=== PATIENT | female | born 1950 | race African-American/Black ===

== ENCOUNTER 2025-02-02 12:40 | Emergency (ER) | payer OTHER ==
[~2025-02-02] VITALS: Ht 170.2 cm; Wt 60.0 kg
[2025-02-02 12:48] VITALS: O2SAT 100
[2025-02-02] MEDS: SODIUM CHLORIDE 0.9% 1,000 ML IV NR (14:06)
[2025-02-02] MEDS: METOCLOPRAMIDE HCL 10MG/2ML VIAL IV NR (14:12)
[2025-02-02 15:15] LABS: HEMATOCRIT. 40.4 % (36.0-48.0); HEMOGLOBIN. 13.0 g/dL (12.0-16.0); MEAN PLATELET VOLUME 7.9 fl (7.4-10.4); PLATELET 223 x1000/uL (130-400); RED BLOOD CELL COUNT 4.86 mill/uL (4.2-5.4); RED CELL DISTRIBUTION WIDTH 14.7 % (11.6-14.6)
[2025-02-02 15:25] LABS: CREATININE 0.8 mg/dL (0.6-1.0); TROPONIN I HIGH SENSITIVITY < 4 ng/L (3.0-34); UREA NITROGEN BLOOD 17 mg/dL (9-23)
[2025-02-02 15:27] LABS: ASPARTATE AMINOTRANSFERASE 18 IU/L (<34); BILIRUBIN DIRECT 0.3 mg/dL (<=3.0); BILIRUBIN TOTAL 1.3 mg/dL (0.1-1.0); PROTEIN TOTAL 6.4 g/dL (6.0-8.3)
[2025-02-02 15:40] LABS: INR 1.1
[2025-02-02 17:08] LABS: BAND% 2.0 % (1.0-6.0); LYMPHOCYTES % MANUAL 6.0 % (20.0-60.0); MONOCYTES % MANUAL 7.0 % (2.0-8.0); NEUTROPHILS % MANUAL 85.0 % (45.0-75.0)
[2025-02-02 17:09] LABS: PLATELET ESTIMATE NORMAL
[2025-02-02] MEDS: IOHEXOL-350 100 ML BOTTLE ONE (17:30)
[2025-02-02 18:29] VITALS: BP 128/62; PULSE 94; RESP 19; TEMP 36.9; O2SAT 100
== END 2025-02-02 18:30 | disposition home or self-care (01) ==
LOC: ER 12:40 → CMPBEDREQ 02-03 07:23
DX: R55 Syncope and collapse (principal)
CPT/HCPCS: 80076; 80048; 83735; 85025; 85379; 85610; 85730; 84484; 36415; 71045; 71275; 70450; 93005; 96361; 96374; 99285; Q9967; J2765; Z7610 ×2; A4606